=== PATIENT | female | born 1980 | race Caucasian/White ===

== ENCOUNTER → 2018-04-30 | Outpatient (CLI) | payer OTHER ==
--- NOTE | 2018-05-01 07:35 | MM ---
Reason for exam: clinical finding. History: Took other hormone beginning at age 23. Physical Findings: Nurse Summary: 1.5cm nodule in the left breast at 3 o'clock (nurse jaydon). MG Diagnostic Mammo w CAD GENE Bilateral CC and MLO view(s) were taken. LM view(s) were taken of the left breast. There are scattered fibroglandular densities. Finding: There is an intermediate concern, suspicious 18 mm spiculated irregular mass located 4 cm from the nipple in the 3 o'clock position of the left breast consistent with mass associated suspicious calcifications extending posterior chest wall. These results were verbally communicated with the patient and result sheet given to the patient on 04/30/15. ASSESSMENT: Incomplete: need additional imaging evaluation, BI-RAD 0 RECOMMENDATION: Ultrasound of the left breast.
--- NOTE | 2018-05-01 07:39 | USB ---
Reason for exam: additional evaluation requested from abnormal screening. History: Took other hormone beginning at age 23. US Breast LT Left complete breast ultrasound includes all four quadrants, the retroareolar region and axilla. Finding demonstrates a 1.5 x 1.4 x 1.2cm irregular, spiculated, solid, vascular, hypoechoic lesion with calcifications at 3 o'clock and a 2.7 x 2.4 x 1.2cm enlarged lymph node at the axilla. These results were verbally communicated with the patient and result sheet given to the patient on 04/30/18. ASSESSMENT: Highly suggestive of malignancy, BI-RAD 5 RECOMMENDATION: Surgical consultation and ultrasound core biopsy of the left breast. Called Dr. Rodriguez with mammographic findings. Biopsy scheduled for 05/08/18 at 2:20. PRELIMINARY REPORT CALLED AND FAXED TO DR. RODRIGUEZ ON 04/30/18.
== END | disposition home or self-care (01) ==
LOC: RADMAMWWP 13:00
PROVIDERS: ATTEND Family Medicine
DX: R92.8 Other abnormal and inconclusive findings on diagnostic imaging of breast (principal); N63.0 Unspecified lump in unspecified breast
CPT/HCPCS: 77066

== ENCOUNTER → 2018-05-06 | Outpatient (CLI) | payer OTHER | END | disposition home or self-care (01) | LOC: LABWHC1 16:47 | PROVIDERS: ATTEND Nurse Practitioner Adult Health | DX: D68.59 Other primary thrombophilia (principal) | CPT/HCPCS: 36415; 85246 ==

== ENCOUNTER → 2018-05-15 | Day surgery (SDC) | payer OTHER ==
[2018-05-15 13:34] VITALS: RESP 16; BMI 21.0
[2018-05-15 15:49] VITALS: BP 121/79; PULSE 89; TEMP 98.1
--- NOTE | 2018-05-15 16:16 | USB ---
EXAMINATION TYPE: US breast needle core addl LT, US breast needle core LT, MG diagnostic mammo LT wo CAD DATE OF EXAM: 05/15/2018 COMPARISON: EXAMINATION TYPE: US breast needle core addl LT, US breast needle core LT, MG diagnostic mammo LT wo CAD DATE OF EXAM: 05/15/2018 CLINICAL HISTORY: R92.8 ABNORMAL MAMMOGRAM. TECHNIQUE: Ultrasound guided core biopsy of left breast x 2 (mass and axilla). COMPARISON: 04/30/2018 FINDINGS: The procedure of ultrasound guided core biopsy was explained to the patient. Benefits, alternatives, and risks were discussed. An informed consent was then obtained. Preprocedural timeout was performed. Site A (breast mass): The patient was placed in supine positioning for imaging and for the procedure. The overlying skin was prepped and draped in usual sterile fashion. 10 cc of lidocaine buffered with bicarbonate was used as anesthetic into the skin and 10 cc of lidocaine with epinephrine subcutaneous tissue up to the highly suspicious 1.5 x 1.4 x 1.2 cm mass with internal calcifications and vascularity at the 3:00 position. Under ultrasound guidance, a 14-gauge Bard nonvacuum biopsy gun device was used to obtain 4 core samples. Following this, a ribbon-shaped marker was left in mass. The patient tolerated the procedure well without any immediate complication. Site B ( left axillary lymph node): The patient was placed in supine positioning for imaging and for the procedure. The overlying skin was prepped and draped in usual sterile fashion. 10 cc of lidocaine buffered with bicarbonate was used as anesthetic into the skin and 10 cc of lidocaine with epinephrine subcutaneous tissue up to the suspicious left axillary lymph node with cortical thickening. Under ultrasound guidance, an 18-gauge Bard nonvacuum biopsy gun device was used to obtain 3 core samples. Following this, a hydromark biopsy marker was left in lymph node. The patient tolerated the procedure well without any immediate complication. Postprocedure imaging demonstrates appropriate placement of the ribbon-shaped biopsy marker. The Hydromark clip was well identified sonographically at the time of the procedure. The patient was kept in the radiology department for short stay after the procedure and then discharged home in stable condition. IMPRESSION: Successful, uncomplicated ultrasound guided core biopsy of area of the highly suspicious left breast mass and left axillary lymph node, full pathology results to follow. Pathology Results: Malignant A. 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 See Surgical Pathology Cancer Case Summary. B. LEFT AXILLA, CORE BIOPSY: Lymph node involved by metastatic high grade carcinoma consistent with ductal breast primary. Recommendation Surgical consult of the left breast. MTDD
== END | disposition home or self-care (01) ==
LOC: RADUSWWP 13:09
PROVIDERS: ATTEND Family Medicine
DX: C50.412 Malignant neoplasm of upper-outer quadrant of left female breast (principal); C77.3 Secondary and unspecified malignant neoplasm of axilla and upper limb lymph nodes
CPT/HCPCS: 88305; 77065; 19083; 19084; A4648; J2001; 88341; 88342

== ENCOUNTER → 2019-04-16 | Outpatient (CLI) | payer OTHER ==
--- NOTE | 2019-04-16 16:57 | ECHOF ---
Referral Reason:C50.812 Malignant neoplasm of overlapping sites of MEASUREMENTS -------- HEIGHT: 154.9 cm WEIGHT: 49.9 kg BP: 90/50 RVIDd: 2.6 cm (< 3.3) IVSd: 0.8 cm (0.6 - 1.1) LVIDd: 3.8 cm (3.9 - 5.3) LVPWd: 0.9 cm (0.6 - 1.1) IVSs: 1.3 cm LVIDs: 2.7 cm LVPWs: 1.2 cm LA Diam: 2.6 cm (2.7 - 3.8) LAESV Index (A-L): 16.24 ml/m Ao Diam: 2.7 cm (2.0 - 3.7) AV Cusp: 2.0 cm (1.5 - 2.6) MV EXCURSION: 16.941 mm (> 18.000) MV EF SLOPE: 82 mm/s (70 - 150) EPSS: 0.3 cm MV E Cl[place]is: 0.88 m/s MV DecT: 170 ms MV A [place]: 0.57 m/s MV E/A Ratio: 1.54 RAP: 5.00 mmHg RVSP: 24.76 mmHg FINDINGS -------- Sinus rhythm. This was a technically good study. The left ventricular size is normal. Left ventricular wall thickness is normal. Overall left vent ricular systolic function is normal with, an EF between 60 - 65 %. The right ventricle is normal in size. Normal LA size by volume 22+/-6 ml/m2. The right atrium is normal in size. Interatrial and interventricular septum intact. Aortic valve is trileaflet and is mildly thickened. The mitral valve leaflets are mildly thickened. There is trace to mild mitral regurgitation. Mild tricuspid regurgitation present. Right ventricular systolic pressure is normal at < 35 mmHg. Trace/mild (physiologic) pulmonic regurgitation. The aortic root size is normal. Normal inferior vena cava with normal inspiratory collapse consistent with estimated right atrial pre ssure of 5 mmHg. There is no pericardial effusion. CONCLUSIONS -------- 1. Sinus rhythm. 2. This was a technically good study. 3. The left ventricular size is normal. 4. Left ventricular wall thickness is normal. 5. Overall left ventricular systolic function is normal with, an EF between 60 - 65 %. 6. The right ventricle is normal in size. 7. Normal LA size by volume 22+/-6 ml/m2. 8. The right atrium is normal in size. 9. Interatrial and interventricular septum intact. 10. Aortic valve is trileaflet and is mildly thickened. 11. The mitral valve leaflets are mildly thickened. 12. There is trace to mild mitral regurgitation. 13. Mild tricuspid regurgitation present. 14. Right ventricular systolic pressure is normal at < 35 mmHg. 15. Trace/mild (physiologic) pulmonic regurgitation. 16. The aortic root size is normal. 17. Normal inferior vena cava with normal inspiratory collapse consistent with estimated right atrial pressure of 5 mmHg. 18. There is no pericardial effusion. WET PROCESS TECHNICIAN: Marcela Thakkar RDCS
== END | disposition home or self-care (01) ==
LOC: RADECHMAIN 13:07
PROVIDERS: ATTEND Internal Medicine Medical Oncology
DX: I08.1 Rheumatic disorders of both mitral and tricuspid valves (principal); C50.812 Malignant neoplasm of overlapping sites of left female breast
CPT/HCPCS: 93306

== ENCOUNTER → 2020-04-27 | Outpatient (CLI) | payer BC, OTHER ==
--- NOTE | 2020-04-27 16:17 | US ---
EXAMINATION TYPE: US abdomen complete DATE OF EXAM: 04/27/2020 COMPARISON: NONE CLINICAL HISTORY: R94.5 abnormal liver function study. EXAM MEASUREMENTS: Liver Length: 11.7 cm Gallbladder Wall: 0.2 cm CBD: 0.2 cm Spleen: 10.1 cm Right Kidney: 10.1 x 4.3 x 5.4 cm Left Kidney: 10.1 x 5.3 x 4.6 cm Pancreas: wnl Liver: wnl Gallbladder: wnl Evidence for sonographic Shoemaker's sign: no CBD: wnl Spleen: wnl Right Kidney: No hydronephrosis or masses seen Left Kidney: No hydronephrosis or masses seen Upper IVC: wnl Abd Aorta: wnl IMPRESSION: 1. Normal abdomen ultrasound
== END | disposition home or self-care (01) ==
LOC: RADUSWWP 06:58
PROVIDERS: ATTEND Family Medicine
DX: R94.5 Abnormal results of liver function studies (principal)
CPT/HCPCS: 76700

== ENCOUNTER → 2020-05-05 | Outpatient (CLI) | payer BC, OTHER ==
--- NOTE | 2020-05-05 13:54 | US ---
EXAMINATION TYPE: US venous doppler duplex UE LT DATE OF EXAM: 05/05/2020 COMPARISON: NONE CLINICAL HISTORY: R22.32 Localized swelling, mass and lump, left upp. SIDE PERFORMED: Left Arm: Negative for DVT IMPRESSION: Grayscale, color doppler, spectral doppler imaging performed of the deep veins of the upper extremiti es. There is normal flow, compressability and vascular waveforms.
== END | disposition home or self-care (01) ==
LOC: RADUSWWP 13:02
DX: C50.912 Malignant neoplasm of unspecified site of left female breast (principal); R22.32 Localized swelling, mass and lump, left upper limb

== ENCOUNTER 2021-01-31 13:01 | Emergency (ER) | payer BC, OTHER ==
[2021-01-31 13:36] VITALS: BP 104/69; PULSE 89; RESP 16; TEMP 98.1
--- NOTE | 2021-01-31 14:46 | ED ---
General Adult HPI - General Chief complaint: Extremity Problem,Nontraumatic Stated complaint: poss DVT lt leg Source: patient, family, RN notes reviewed Mode of arrival: ambulatory Limitations: no limitations - History of Present Illness Initial comments: 40-year-old white female, alert and oriented 4, well-appearing, anxious, presents to the emergency room with complaints of left lower leg cramping and she feels a knot posteriorly with a pulling sensation. Patient denies injuries. Patient states she is very active however went to [facility] and was told to come to the emergency room to rule out DVT. Patient has no swelling in that leg is able to ambulate with steady gait. Patient states that she has a history of von Willebrand's and fibromyalgia, surgical history of appendectomy and hysterectomy. Patient was seeing Dr. Poole is a primary care doctor but has h ad blood work recently. She called the primary office and they told her to have a CBC done as well today. Patient denies any headache, no nausea vomiting diarrhea or fevers. Patient is well-appearing. Location: left, lower extremity Severity scale (1-10): 0 Quality: other (cramp) Consistency: intermittent Associated Symptoms: denies other symptoms - Related Data Home Medications Medication Instructions Recorded Confirmed Omeprazole 40 mg PO HS 05/07/18 01/31/21 Ramelteon [Rozerem] 8 mg PO HS 05/07/18 01/31/21 Buprenorphine [Butrans 20 MCG/HOUR] 1 patch TRANSDERM RED 01/31/21 01/31/21 DULoxetine HCL [Cymbalta] 30 mg PO HS 01/31/21 01/31/21 Diclofenac Sodium [Voltaren] 75 mg PO BID 01/31/21 01/31/21 Methocarbamol [Robaxin-750] 750 mg PO Q8H 01/31/21 01/31/21 Nitrofurantoin Monohyd/M-Cryst 100 mg PO DAILY 01/31/21 01/31/21 [Macrobid] Vortioxetine Hydrobromide 10 mg PO HS 01/31/21 01/31/21 [Trintellix] ondansetron HCL [Zofran] 8 mg PO BID PRN 01/31/21 01/31/21 ondansetron HCL [Zofran] 8 mg PO HS 01/31/21 01/31/21 traMADol HCL 50 mg PO BID PRN 01/31/21 01/31/21 Allergies Allergy/AdvReac Type Severity Reaction Status Date / Time oxycodone Allergy Rash/Hives Verified 01/31/21 16:44 sulfamethoxazole Allergy Swelling Verified 01/31/21 16:44 [From Bactrim] trimethoprim [From Bactrim] Allergy Swelling Verified 01/31/21 16:44 Review of Systems ROS Statement: Those systems with pertinent positive or pertinent negative responses have been documented in the HPI. ROS Other: All systems not noted in ROS Statement are negative. Past Medical History Past Medical History: Blood Disorder, Fibromyalgia Additional Past Medical History / Comment(s): mild Von Willebrand disease History of Any Multi-Drug Resistant Organisms: None Reported Past Surgical History: Appendectomy, Hysterectomy Additional Past Surgical History / Comment(s): renita removal on head, bilateral heal spur removal Past Anesthesia/Blood Transfusion Reactions: No Reported Reaction Past Psychological History: Anxiety Smoking Status: Current every day smoker Past Alcohol Use History: None Reported Past Drug Use History: None Reported General Exam Limitations: no limitations General appearance: alert, in no apparent distress Head exam: Present: atraumatic, normocephalic, normal inspection Eye exam: Present: normal appearance, PERRL, EOMI. Absent: scleral icterus, conjunctival injection, periorbital swelling ENT exam: Present: normal exam, normal oropharynx, mucous membranes moist Neck exam: Present: normal inspection, full ROM. Absent: tenderness, meningismus, lymphadenopathy Respiratory exam: Present: normal lung sounds bilaterally. Absent: respiratory distress, wheezes, rales, rhonchi, stridor, chest wall tenderness, accessory muscle use, decreased breath sounds Cardiovascular Exam: Present: regular rate, normal rhythm, normal heart sounds. Absent: systolic murmur, diastolic murmur, rubs, gallop, clicks GI/Abdominal exam: Present: soft, normal bowel sounds. Absent: distended, tenderness, guarding, rebound, rigid Left Knee exam: Present: normal inspection, full ROM. Absent: tenderness Lower Leg exam: Present: normal inspection, full ROM, tenderness. Absent: swelling, abrasion, laceration, ecchymosis, deformity, crepitus, dislocation, erythema, palpable cord, Homans' sign Ankle exam: Present: normal inspection Foot/Toe exam: Present: normal inspection Neurovascular tendon exam: Present: no vascular compromise. Absent: pulse deficit, abnormal cap refill, motor deficit, sensory deficit, tendon deficit, extremity cold to touch, pallor, foot drop Back exam: Present: full ROM. Absent: tenderness, CVA tenderness (R), CVA tenderness (L), paraspinal tenderness, vertebral tenderness Neurological exam: Present: alert, oriented X3, CN II-XII intact Psychiatric exam: Present: normal affect, anxious Skin exam: Present: warm, dry, intact, normal color. Absent: rash, cyanosis, diaphoretic, erythema, petechiae, pallor, mottled Course Vital Signs 01/31/21 13:34 Temperature 98.1 F Pulse Rate 89 Respiratory 16 Rate Blood Pressure 104/69 O2 Sat by Pulse 99 Oximetry Medical Decision Making - Medical Decision Making WBC count is 5.0, hemoglobin and hematocrit is 13 and 40 respectively. Ultrasound of the left leg negative for DVT. Patient will be discharged home to follow up with her primary care doctor. Case discussed with Dr. Giang - Lab Data Result diagrams: 01/31/21 15:10 Lab Results 01/31/21 Range/Units 15:10 WBC 5.0 (3.8-10.6) k/uL RBC 4.27 (3.80-5.40) m/uL Hgb 13.3 (11.4-16.0) gm/dL Hct 40.3 (34.0-46.0) % MCV 94.5 (80.0-100.0) fL MCH 31.3 (25.0-35.0) pg MCHC 33.1 (31.0-37.0) g/dL RDW 12.7 (11.5-15.5) % Plt Count 267 (150-450) k/uL MPV 7.5 Neutrophils % 59 % Lymphocytes % 28 % Monocytes % 6 % Eosinophils % 5 % Basophils % 1 % Neutrophils # 3.0 (1.3-7.7) k/uL Lymphocytes # 1.4 (1.0-4.8) k/uL Monocytes # 0.3 (0-1.0) k/uL Eosinophils # 0.2 (0-0.7) k/uL Basophils # 0.0 (0-0.2) k/uL Disposition Clinical Impression: Leg pain, left Disposition: HOME SELF-CARE Condition: Good Instructions (If sedation given, give patient instructions): Leg Pain (ED) Additional Instructions: Follow-up with the primary care doctor return if worsening symptoms. Is patient prescribed a controlled substance at d/c from ED?: No Referrals: Delaney Cook MD [Primary Care Provider] - 1-2 days Time of Disposition: 17:01
[2021-01-31 15:19] LABS: Basophils % (A) 1 %; Eosinophils # (A) 0.2 k/uL (0-0.7); Eosinophils % (A) 5 %; HCT 40.3 % (34.0-46.0); HGB 13.3 gm/dL (11.4-16.0); Lymphocytes # (A) 1.4 k/uL (1.0-4.8); Lymphocytes % (A) 28 %; MCH 31.3 pg (25.0-35.0); MCHC 33.1 g/dL (31.0-37.0); MCV 94.5 fL (80.0-100.0); Mean Platelet Volume 7.5; Monocytes # (A) 0.3 k/uL (0-1.0); Monocytes % (A) 6 %; Neutrophils % (A) 59 %; Platelet Count 267 k/uL (150-450); RBC 4.27 m/uL (3.80-5.40); RDW 12.7 % (11.5-15.5)
--- NOTE | 2021-01-31 16:20 | US ---
EXAMINATION TYPE: US venous doppler duplex LE LT DATE OF EXAM: 01/31/2021 4:11 PM COMPARISON: 05/05/2020 CLINICAL HISTORY: pain. Left leg pain SIDE PERFORMED: Left TECHNIQUE: The lower extremity deep venous system is examined utilizing real time linear array sonog kaleb with graded compression, doppler sonography and color-flow sonography. VESSELS IMAGED: Common Femoral Vein Deep Femoral Vein Greater Saphenous Vein * Femoral Vein Popliteal Vein Small Saphenous Vein * Proximal Calf Veins (* superficial vessels) Left Leg: Appears negative for DVT Left calf: no abnormalities seen at patient's area of concern. IMPRESSION: 1. No evidence of deep venous thrombosis in the left lower extremity veins.
== END 2021-01-31 17:09 | disposition home or self-care (01) ==
LOC: EC 13:01
DX: M79.662 Pain in left lower leg (principal); R25.2 Cramp and spasm; D68.0 Von Willebrand disease; M79.7 Fibromyalgia; F41.9 Anxiety disorder, unspecified; F17.200 Nicotine dependence, unspecified, uncomplicated; Z79.1 Long term (current) use of non-steroidal anti-inflammatories (NSAID); Z79.899 Other long term (current) drug therapy; Z88.1 Allergy status to other antibiotic agents; Z88.2 Allergy status to sulfonamides; Z88.5 Allergy status to narcotic agent; Z90.49 Acquired absence of other specified parts of digestive tract
CPT/HCPCS: 36415; 85025; 99284

== ENCOUNTER → 2021-03-14 | Outpatient (CLI) | payer BC, OTHER ==
--- NOTE | 2021-03-15 09:06 | MR ---
EXAMINATION TYPE: MR brentine/jerson wo con DATE OF EXAM: 03/14/2021 COMPARISON: None HISTORY: Neck and back pain, Headaches, Muscle aches and bone pain thru body. Breast Ca history CONTRAST: Performed utilizing 0 mL intravenous Gadavist gadolinium contrast. TECHNIQUE: Multiplanar multiecho imaging on a 3.0 Corina magnet is performed through the cervical spin e. FINDINGS: The craniovertebral junction is normal. Vertebral body alignment is normal. C7-T1: No focal disc herniation or significant disc bulge is evident. No spinal canal stenosis is pr esent. Uncovertebral joint hypertrophy has mild right foraminal narrowing. C6-7: There is a small central protrusion with mild anterior thecal sac compression. No AP spinal can al stenosis is present. Mild right foraminal narrowing is present. C5-6: Broad-based disc bulge is moderate anterior thecal sac compression. Comes in close approximatio n with the spinal cord. Some spinal cord flattening may be present. No AP spinal canal stenosis is pr esent. Minimal bilateral foraminal narrowing is present. There is a kyphosis centered at this level.. C4-5: Minimal disc bulge is present with anterior thecal sac compression. This is in close approximat ion with the spinal cord. C3-4: No focal disc herniation or significant disc bulge is evident. No spinal canal stenosis or king ral foraminal stenosis is present. C2-3: No focal disc herniation or significant disc bulge is evident. No spinal canal stenosis or king ral foraminal stenosis is present. IMPRESSIONS: 1. Broad-based disc bulge C5-6 with moderate anterior thecal sac compression and mild cord flattening . 2. Focal kyphosis at the C5-6 level. 3. Small central protrusion C6-7 mild bulging C4-5 without stenosis or cord compression. 4. Mild foraminal narrowing inferior cervical spine. EXAMINATION TYPE: MR joanna/jerson wo con DATE OF EXAM: 03/14/2021 COMPARISON: None HISTORY: Neck and back pain, Headaches, Muscle aches and bone pain thru body. Breast Ca history CONTRAST: 0 mL intravenous Gadavist. TECHNIQUE: Multiplanar, multisequence images of the lumbar spine were acquired. FINDINGS: L5-S1: No significant disc bulge or disc herniation. No spinal canal stenosis. No foraminal stenosi s. L4-L5: No significant disc bulge or disc herniation. No spinal canal stenosis. No foraminal stenosi s. L3-L4: No significant disc bulge or disc herniation. No spinal canal stenosis. There is some facet hypertrophy with ligamentum flavum laxity at the L3-4 level. This has some right posterior lateral th ecal sac compression. L2-L3: No significant disc bulge or disc herniation. No spinal canal stenosis. No foraminal stenosi s. L1-L2: No significant disc bulge or disc herniation. No spinal canal stenosis. No foraminal stenosi s. T12-L1: No significant disc bulge or disc herniation. No spinal canal stenosis. No foraminal stenos is. IMPRESSION: 1. Mild facet hypertrophy L3-4 with posterior lateral thecal sac compression, greater on the right. 2. Lumbar spine otherwise appears unremarkable.
== END | disposition home or self-care (01) ==
LOC: RADMRIMAIN 11:49
PROVIDERS: ATTEND Anesthesiology Pain Medicine
DX: M99.71 Connective tissue and disc stenosis of intervertebral foramina of cervical region (principal); M50.223 Other cervical disc displacement at C6-C7 level; M40.292 Other kyphosis, cervical region; M89.38 Hypertrophy of bone, other site
CPT/HCPCS: 72141; 72148

== ENCOUNTER → 2021-06-23 | Outpatient (CLI) | payer BC, OTHER ==
--- NOTE | 2021-06-23 11:36 | XR ---
EXAMINATION TYPE: XR sacrum coccyx DATE OF EXAM: 06/23/2021 CLINICAL HISTORY: pain TECHNIQUE: Three views of the sacrum and coccyx are submitted. COMPARISON: None Sacral alae appear symmetric. No evidence for fracture or bony lesion. Sacroiliac joints are within normal limits. Visualized coccygeal segments are free of fracture or lesion. IMPRESSION: Normal study
== END ==
LOC: RADXRMAIN 10:39
PROVIDERS: ATTEND Physical Medicine & Rehabilitation
DX: M53.3 Sacrococcygeal disorders, not elsewhere classified (principal)
CPT/HCPCS: 72220

== ENCOUNTER → 2022-12-13 | Outpatient (CLI) | payer BC, OTHER ==
--- NOTE | 2022-12-14 07:54 | CT ---
EXAMINATION TYPE: CT chest w con DATE OF EXAM: 12/13/2022 COMPARISON: None HISTORY: Breast Cancer follow up CT DLP: 134.5 mGycm, Automated exposure control for dose reduction was used. CONTRAST: Performed injected with 100 cc mL of Isovue 300. TECHNIQUE: Axial images were obtained at 5 mm thick sections. Reconstructed images are reviewed on [employer] computer in the coronal plane. FINDINGS: Portion of the thyroid visualized is normal. Bilateral breast prostheses are present. No suspicious lung nodules or focal infiltrates are present. No enlarged mediastinal or hilar adenopathy is evident. The ascending aorta diameter at the level o f the main pulmonary artery is 2.6 cm. The main pulmonary artery diameter at the bifurcation is 2.[address] sections are obtained through the upper abdomen. Abdomen is essentially unremarkable. Osse ous structures appear unremarkable. IMPRESSIONS: 1. No suspicious changes to suggest recurrent or metastatic breast cancer
== END | disposition home or self-care (01) ==
LOC: RADCTMAIN 16:20
PROVIDERS: ATTEND Internal Medicine Medical Oncology
DX: C50.812 Malignant neoplasm of overlapping sites of left female breast (principal)
CPT/HCPCS: 71260; Q9967